=== PATIENT | female | born 1940 | race Caucasian/White ===

== ENCOUNTER → 2020-10-21 16:01 | Outpatient (CLI) | payer MEDICARE, OTHER, SELFPAY ==
[2020-10-21 16:47] LABS: Anion Gap 5 (5-15); BUN 27 mg/dL (7-18); BUN/Creat Ratio 23.9 RATIO (10-20); Calcium,Total 10.7 mg/dL (8.5-10.1); Chloride 107 mmol/L (98-107); Creatinine, Serum 1.13 mg/dL (0.55-1.02); EST Glomerular Filtration Rate 49 mL/min (>60); Est Glom Filt Rate - Afr Amer 60 mL/min (>60); Glucose 97 mg/dL (74-106); Potassium 4.3 mmol/L (3.5-5.1); Sodium Level 141 mmol/L (136-145)
--- NOTE | 2020-10-21 17:01 | RAD.NOTE ---
NICK REFUSED THE STUDY, SHE WAS VERY ANXIOUS AND SAID SHE WAS ALLERGIC TO RADIATION AND WAS VERY AFRAID.
== END ==
LOC: CT 16:12 → LAB 17:01
PROVIDERS: PCP Internal Medicine; Referring Provider Urology; Visit Provider Urology
DX: N13.30 Unspecified hydronephrosis (principal); N39.0 Urinary tract infection, site not specified
CPT/HCPCS: 36415; 80048